=== PATIENT | male | born 2005 | race Caucasian/White ===

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

== ENCOUNTER → 2024-02-15 | Emergency (ER) | payer MEDICAID ==
[~2024-02-15] VITALS: Ht 190.5 cm; Wt 109.1 kg
[~2024-02-15] MED LIST: [UNRECOGNIZED DRUG - CODE] TOP
[2024-02-15 16:08] VITALS: BP 117/79; PULSE 76; RESP 16; TEMP 96.8; O2SAT 100
== END | disposition left against medical advice (07) ==
LOC: ER 15:53
DX: L30.9 Dermatitis, unspecified (principal)
CPT/HCPCS: 99281